=== PATIENT | male | born 1935 | race Caucasian/White ===

== ENCOUNTER 2019-03-12 15:56 | Emergency (ER) | payer MEDICARE, BC ==
[~2019-03-12] VITALS: Ht 182.9 cm; Wt 90.7 kg
[~2019-03-12 15:56] MED LIST: VALA500T34 PO; VALS160T2 PO
--- NOTE | 2019-03-12 16:22 | NUR ---
PATIENT BIB RA 83 FOR TRIP AND FALL. PATIENT IS AWAKE, ALERT, ORIENTED X4 IN NO DISTRESS. HE HAS A LACERATION ON HIS FOREHEAD AND SKIN TEARS ON HIS SCALP.
--- NOTE | 2019-03-12 16:31 | NUR ---
PATIENT LACERATION IRRIGATED AND SCALP SKIN TEARS WERE CLEANSED.
[2019-03-12] MEDS: LIDOCAINE 1%-EPI 1:100,000 20 ML VIAL TP ONE (16:56)
[2019-03-12] MEDS: TDAP DIPH,PERTUSS,TET VAC/PF 0.5 ML DISP.SYRIN IM ONE (17:00)
[2019-03-12] MEDS ORDERED: TDAP DIPH,PERTUSS,TET VAC/PF 0.5 ML DISP.SYRIN IM ONE (17:04)
--- NOTE | 2019-03-12 19:14 | NUR ---
DC, RX AND FOLLOW UP INSTRUCTIONS GIVEN AND EXPLAINED TO PATIENT AND GIRLFRIEND WHO STATE THEY UNDERSTAND ALL INSTRUCTIONS.
== END 2019-03-12 19:21 | disposition home or self-care (01) ==
LOC: ER 15:59
DX: S01.81XA Laceration without foreign body of other part of head, initial encounter (principal); S16.1XXA Strain of muscle, fascia and tendon at neck level, initial encounter; S83.91XA Sprain of unspecified site of right knee, initial encounter; S23.41XA Sprain of ribs, initial encounter; S50.311A Abrasion of right elbow, initial encounter; I10 Essential (primary) hypertension; Z88.2 Allergy status to sulfonamides; Z88.0 Allergy status to penicillin; Z88.1 Allergy status to other antibiotic agents; Z79.899 Other long term (current) drug therapy; W01.0XXA Fall on same level from slipping, tripping and stumbling without subsequent striking against object, initial encounter; Y93.89 Activity, other specified; Y92.89 Other specified places as the place of occurrence of the external cause; Y99.8 Other external cause status
CPT/HCPCS: 12013; 70450; 71045; 72125; 73080; 73562; 90471; 90715; 99284; J3490; A4663

== ENCOUNTER 2019-03-14 07:50 | Emergency (ER) | payer MEDICARE, BC ==
[~2019-03-14] VITALS: Ht 182.9 cm; Wt 89.4 kg
--- NOTE | 2019-03-14 07:55 | NUR ---
at bedside to examine patient.
== END 2019-03-14 08:03 | disposition home or self-care (01) ==
LOC: ER 07:50
DX: S01.81XD Laceration without foreign body of other part of head, subsequent encounter (principal); S05.11XD Contusion of eyeball and orbital tissues, right eye, subsequent encounter; S80.211D Abrasion, right knee, subsequent encounter; S50.311D Abrasion of right elbow, subsequent encounter; I16.0 Hypertensive urgency; Z88.0 Allergy status to penicillin; Z88.1 Allergy status to other antibiotic agents; Z88.2 Allergy status to sulfonamides; Z88.8 Allergy status to other drugs, medicaments and biological substances; Z79.899 Other long term (current) drug therapy; X58.XXXD Exposure to other specified factors, subsequent encounter
CPT/HCPCS: A4663

== ENCOUNTER 2019-03-20 07:28 | Emergency (ER) | payer MEDICARE, BC ==
[~2019-03-20] VITALS: Ht 182.9 cm; Wt 88.5 kg
--- NOTE | 2019-03-20 07:52 | NUR ---
PT WAS EVALUATED BY DR LANDAVERDE. SUTURES ON PT's RIGHT FOREHEAD WERE REMOVED BY DR LANDAVERDE. PT TOLERATED TO PROCEDURE WITHOUT COMPLICATIONS. PT WAS D/C;d TO HOME. D/C INSTRUCTIONS GIVEN TO THE PT.
[2019-03-20 07:54] VITALS: BP 142/88
== END 2019-03-20 07:58 | disposition home or self-care (01) ==
LOC: ER 07:28
DX: S01.81XD Laceration without foreign body of other part of head, subsequent encounter (principal); S80.212D Abrasion, left knee, subsequent encounter; S80.211D Abrasion, right knee, subsequent encounter; I10 Essential (primary) hypertension; Z88.0 Allergy status to penicillin; Z88.1 Allergy status to other antibiotic agents; Z88.2 Allergy status to sulfonamides; Z88.8 Allergy status to other drugs, medicaments and biological substances; Z79.899 Other long term (current) drug therapy; X58.XXXD Exposure to other specified factors, subsequent encounter
CPT/HCPCS: 99281; J3490; A4663

== ENCOUNTER 2019-07-16 15:37 | Emergency (ER) | payer MEDICARE, BC ==
[~2019-07-16] VITALS: Ht 182.9 cm; Wt 94.3 kg
--- NOTE | 2019-07-16 15:50 | NUR ---
BIB [facility] FOR S/P FALL AND C/O RIGHT HIP PAIN... PLACED ON A MONITOR.
--- NOTE | 2019-07-16 16:04 | NUR ---
JEFFERSON OLIVA [employer] HERE TO INTERVIEW PATIENT.
--- NOTE | 2019-07-16 16:07 | NUR ---
DARIEN NAME AND OFFICERNUMBER: NOTES [id number] AND BIRDIE [id number]
--- NOTE | 2019-07-16 16:36 | NUR ---
DARIEN INCIDENT NUMBER [id number]
[2019-07-16 16:48] LABS: BASOPHILS % (AUTO) 0.5 % (0.0-2.0); EOSINOPHILS # (AUTO) 0.1 K/uL (0.0-0.7); EOSINOPHILS % (AUTO) 2.3 % (0.0-7.0); HEMATOCRIT 42.2 % (36.7-47.1); HEMOGLOBIN 14.3 g/dL (12.5-16.3); LYMPHOCYTES % (AUTO) 20.6 % (20.5-51.5); MEAN CORPUSCULAR HEMOGLOBIN 35.3 uug (23.8-33.4); MEAN CORPUSCULAR HGB CONC 34 g/dL (32.5-36.3); MEAN CORPUSCULAR VOLUME 104.2 fL (73.0-96.2); MONOCYTES # (AUTO) 0.5 K/uL (2.0-10.0); MONOCYTES % (AUTO) 9.9 % (0.0-11.0); NEUTROPHILS # (AUTO) 3.2 K/uL (1.8-8.9); NEUTROPHILS % (AUTO) 66.7 % (38.5-71.5); PLATELET COUNT (AUTO) 99 K/uL (152-348); RED BLOOD CELL COUNT(AUTO) 4.05 MIL/uL (4.06-5.63); WHITE BLOOD COUNT (AUTO) 4.9 K/uL (3.6-10.2)
[2019-07-16 17:00] LABS: POTASSIUM 3.7 mmol/L (3.5-5.1)
[2019-07-16] MEDS ORDERED: MORPHINE SULFATE 4 MG/1 ML DISP.SYRIN ONE (17:00)
[2019-07-16] MEDS ORDERED: MORPHINE SULFATE 4 MG/1 ML DISP.SYRIN IV ONE (17:00)
[2019-07-16] MEDS ORDERED: IV NS 1000 ML 1,000 ML IV PRN (17:36)
--- NOTE | 2019-07-16 17:38 | NUR ---
PAIN MED GIVEN ORDERED, PT STATES PAIN HAS DIMINSHED SOME...
[2019-07-16] MEDS ORDERED: MORPHINE SULFATE 2 MG/1 ML DISP.SYRIN IV PRN (17:45)
[2019-07-16] MEDS ORDERED: HYDROCODONE/APAP 5-325MG TABLET PO PRN (17:45)
[2019-07-16] MEDS ORDERED: ACETAMINOPHEN 325 MG TABLET PO PRN (17:45)
[2019-07-16] MEDS ORDERED: MAGNESIUM HYDROXIDE 30 ML LIQUID UDC PO PRN (17:45)
[2019-07-16] MEDS ORDERED: ONDANSETRON 4 MG/2 ML VIAL IV PRN (17:45)
[2019-07-16] MEDS ORDERED: Z GUARD REMEDY PASTE 57 GM TUBE TOP PRN (17:45)
[2019-07-16] MEDS ORDERED: hydrALAZINE HCL 25 MG TABLET PO PRN (18:00)
--- NOTE | 2019-07-16 18:02 | NUR ---
Left message for Dr Ng, Ortho surgeon, awaiting call back.
--- NOTE | 2019-07-16 18:25 | NUR ---
DR. ALCOCER TALKED TO DR. OLIVAS AND REQUESTED THE PT TO BE TRNASFERED TO [facility], WILL BE THE ACCEPTING MD. CALLED [facility] AND TALKED NICOLAS RAMIREZ BOIL OFF WORKER, TO [place] FOR TRANSFER. FAXED THE FACE SHEET TO [phone] PER REQUEST
--- NOTE | 2019-07-16 18:27 | NUR ---
DR. ALCOCER NUMBER [phone], ORTHO
--- NOTE | 2019-07-16 19:22 | NUR ---
[facility] CALLED AND STATED DR NOLAND (ORTHO) WILL ACCEPT THIS PATIENT AND THEY WAILL CALL BACK WITHIN 30 MINUTES FOR BED NUMBER AND REPORT NUMBER. HAND OFF REPORT GIVEN TO ETTA LANE
--- NOTE | 2019-07-16 20:56 | NUR ---
Pt assigned to 506B in [facility]. Pt is refusing to be transferred to [place] due to distance. Pt states that his significant other does not drive long distances. Dr. Recinos made aware. Called Dr. Ng ([facility]) for update, waiting for call back.
--- NOTE | 2019-07-16 21:34 | NUR ---
Dr. Recinos on phone with Dr. Ng (ortho)
--- NOTE | 2019-07-16 22:15 | NUR ---
Dr. Ng requesting for patient to go to [facility]. [facility] called, pending update.
--- NOTE | 2019-07-16 22:38 | NUR ---
Spoke with Pamella Goetz from [facility] regarding transfer, states no available bed at this time. Dr. Ng made aware.
--- NOTE | 2019-07-16 23:08 | NUR ---
Received call back from Pamella Goetz ([facility]) and states that Dr. Frazier (hospitalist) will accept patient [phone].
--- NOTE | 2019-07-17 00:40 | NUR ---
Dr. Frazier on phone with Dr Recinos. Pending transfer information at this time. Per admitting ([facility]) no available beds yet.
--- NOTE | 2019-07-17 01:01 | NUR ---
Pt to be transferred to [facility] room [address] Freddie Humphreys trip # [id number]
--- NOTE | 2019-07-17 01:25 | NUR ---
Report given to Juana LANE from [facility].
[2019-07-17] MEDS ORDERED: ONDANSETRON 4 MG/2 ML VIAL ONE (02:16)
[2019-07-17] MEDS ORDERED: HYDROMORPHONE 1 MG/1 ML DISP.SYRIN ONE (02:16)
[2019-07-17] MEDS ORDERED: ONDANSETRON 4 MG/2 ML VIAL IV ONE (02:30)
[2019-07-17] MEDS ORDERED: HYDROMORPHONE 1 MG/1 ML DISP.SYRIN IV ONE (02:30)
--- NOTE | 2019-07-17 03:25 | NUR ---
Report given to Ambuln staff unit 228, pt transferred to in stable condition. Pt and family members aware of plan of care. No acute distress.
== END 2019-07-17 03:29 | disposition short-term general hospital (02) ==
LOC: ER 15:37
DX: S72.001A Fracture of unspecified part of neck of right femur, initial encounter for closed fracture (principal); D69.6 Thrombocytopenia, unspecified; I10 Essential (primary) hypertension; Z88.0 Allergy status to penicillin; Z88.1 Allergy status to other antibiotic agents; Z88.8 Allergy status to other drugs, medicaments and biological substances; Z79.899 Other long term (current) drug therapy; Y04.0XXA Assault by unarmed brawl or fight, initial encounter; Y93.89 Activity, other specified; Y92.89 Other specified places as the place of occurrence of the external cause; Y99.8 Other external cause status
CPT/HCPCS: 36415; 71045; 72110; 72170; 73502; 73551; 80048; 85025; 85730; 93005; 96374; 96375; 99285; J1170; J2270; J2405; A4663

== ENCOUNTER 2019-11-11 10:57 | Inpatient (IN) | payer MEDICARE, BC ==
[~2019-11-11] VITALS: Ht 182.9 cm; Wt 88.5 kg
--- NOTE | 2019-11-11 11:00 | NUR ---
pt bib ra 83 from home co cp. pt woke up with cp today, lasted an hour but subsided with nitro and asa given by paramedics. on arrival, pt deneis any co, sob, coughing or nausea. pt breathing normally, no sign of distress.
[2019-11-11] MEDS ORDERED: [UNRECOGNIZED DRUG - OTHER] (11:12)
[2019-11-11] MEDS ORDERED: METO25TA6 PO (11:12)
[2019-11-11] MEDS ORDERED: TAMS-3 PO (11:12)
[2019-11-11] MEDS ORDERED: CHOL500062 (11:12)
[2019-11-11] MEDS ORDERED: ASPI-605 PO (11:12)
[2019-11-11] MEDS ORDERED: AREDS2 (11:12)
[2019-11-11] MEDS ORDERED: B-COMPLEX (11:12)
[2019-11-11 11:25] LABS: BASOPHILS % (AUTO) 1.2 % (0.0-2.0); EOSINOPHILS # (AUTO) 0.2 K/uL (0.0-0.7); EOSINOPHILS % (AUTO) 4.9 % (0.0-7.0); HEMATOCRIT 40.7 % (36.7-47.1); HEMOGLOBIN 13.8 g/dL (12.5-16.3); LYMPHOCYTES # (AUTO) 1.7 K/uL (20.0-40.0); LYMPHOCYTES % (AUTO) 40.4 % (20.5-51.5); MEAN CORPUSCULAR HEMOGLOBIN 33.6 uug (23.8-33.4); MEAN CORPUSCULAR HGB CONC 34 g/dL (32.5-36.3); MEAN CORPUSCULAR VOLUME 99.2 fL (73.0-96.2); MONOCYTES # (AUTO) 0.5 K/uL (2.0-10.0); NEUTROPHILS # (AUTO) 1.8 K/uL (1.8-8.9); NEUTROPHILS % (AUTO) 42.5 % (38.5-71.5); PLATELET COUNT (AUTO) 112 K/uL (152-348); WHITE BLOOD COUNT (AUTO) 4.3 K/uL (3.6-10.2)
[2019-11-11 11:35] LABS: CREATININE 1.1 mg/dL (0.6-1.3); POTASSIUM 4.1 mmol/L (3.5-5.1)
[2019-11-11 11:41] LABS: BILIRUBIN,DIRECT 0.2 mg/dL (0.0-0.2); BILIRUBIN,TOTAL 0.7 mg/dL (0.2-1.0); TOTAL PROTEIN, SERUM 5.9 g/dL (6.4-8.2)
--- NOTE | 2019-11-11 12:30 | NUR ---
trnasfered pt to floor in stable condition. pt remained pain/distress free the whole er stay.
[2019-11-11] MEDS ORDERED: ONDANSETRON 4 MG/2 ML VIAL IV PRN (13:30)
[2019-11-11] MEDS ORDERED: Z GUARD REMEDY PASTE 57 GM TUBE TOP PRN (13:30)
[2019-11-11] MEDS ORDERED: ACETAMINOPHEN 325 MG TABLET PO PRN (13:30)
[2019-11-11] MEDS: METOPROLOL TARTRATE 25 MG TABLET PO SCH ×2 (13:45→20:17)
[2019-11-11 14:52] VITALS: BP 141/66
[2019-11-11 16:11] VITALS: BP 150/76
[2019-11-11] MEDS ORDERED: METOPROLOL TARTRATE 25 MG TABLET PO SCH (18:00)
--- NOTE | 2019-11-11 18:42 | NUR ---
patient calm and comfortable with no signs of distress; patient with with stable vital signs. Report given to oncoming nurse.
--- NOTE | 2019-11-11 19:00 | NUR ---
PATIENT ALERT ORIENTED, NO SOB NO CHEST PAIN. PATIENT ON TELE MONITOR SINUS RHYTHM AT THIS TIME. PATIENT RESTING NO COMPLAIN OF CHEST PAIN, CONT TO MONITOR.
[2019-11-11 20:00] VITALS: BP 147/90
[2019-11-11] MEDS ORDERED: ATORVASTATIN 40 MG TABLET PO SCH (21:00)
[2019-11-12] VITALS: BP 141/95
[2019-11-12 04:00] VITALS: BP 148/93
--- NOTE | 2019-11-12 06:25 | NUR ---
PATIENT ALERT ORIENTED, NO SOB NO CHEST PAIN AT THIS TIME. PATIENT TELE MONITOR SINUS RYTHYM SINUS SHANDA FROM 48- TO 67. PATIENT USES URINAL FOR BLADDER ELIMINATIONS, CONT TO MONITOR.
[2019-11-12 06:49] LABS: BASOPHILS % (AUTO) 1.1 % (0.0-2.0); EOSINOPHILS # (AUTO) 0.3 K/uL (0.0-0.7); EOSINOPHILS % (AUTO) 6.3 % (0.0-7.0); HEMATOCRIT 39.5 % (36.7-47.1); HEMOGLOBIN 13.4 g/dL (12.5-16.3); LYMPHOCYTES # (AUTO) 1.8 K/uL (20.0-40.0); LYMPHOCYTES % (AUTO) 41.4 % (20.5-51.5); MEAN CORPUSCULAR HEMOGLOBIN 33.5 uug (23.8-33.4); MEAN CORPUSCULAR HGB CONC 34 g/dL (32.5-36.3); MONOCYTES # (AUTO) 0.5 K/uL (2.0-10.0); MONOCYTES % (AUTO) 10.4 % (0.0-11.0); NEUTROPHILS # (AUTO) 1.8 K/uL (1.8-8.9); NEUTROPHILS % (AUTO) 40.8 % (38.5-71.5); PLATELET COUNT (AUTO) 113 K/uL (152-348); RED BLOOD CELL COUNT(AUTO) 3.99 MIL/uL (4.06-5.63); WHITE BLOOD COUNT (AUTO) 4.4 K/uL (3.6-10.2)
[2019-11-12 06:50] LABS: MAGNESIUM 1.9 mg/dL (1.8-2.4); PHOSPHOROUS 3.6 mg/dL (2.5-4.9); POTASSIUM 3.7 mmol/L (3.5-5.1)
--- NOTE | 2019-11-12 07:30 | NUR ---
Received pt in bed AOx3, on RA with no complaints of distress or SOB noted at this time. No complaints of chest pain, 3/10 pain on left shoulder and jaw. Per pt the reason of pain is fall. IV on left hand 20g, flushed and patent. Pt able to ambulate to bathroom. Bed locked in lowest position with siderails 2x up. Call light and belongings within reach. will monitor
[2019-11-12 08:06] VITALS: BP 154/94
[2019-11-12] MEDS ORDERED: TAMSULOSIN HCL 0.4 MG CAP.SR.24H PO SCH (09:00)
[2019-11-12] MEDS ORDERED: ASPIRIN 81 MG TAB.CHEW PO SCH (09:00)
[2019-11-12] MEDS: METOPROLOL TARTRATE 25 MG TABLET PO SCH (09:00)
[2019-11-12] MEDS ORDERED: VALSARTAN 160 MG TABLET PO SCH (09:00)
[2019-11-12] MEDS ORDERED: ASPIRIN EC 81 MG TABLET.DR PO SCH (09:00)
[2019-11-12] MEDS ORDERED: VALACYCLOVIR HCL 500 MG TABLET PO SCH (09:00)
--- NOTE | 2019-11-12 09:13 | NUR ---
Hold Metoprolol for now, HR 53-61. Will inform .
[2019-11-12 10:45] LABS: THYROID STIMULATING HORMONE 1.87 mIU/mL (0.358-3.740)
[2019-11-12 11:50] VITALS: BP 142/80
--- NOTE | 2019-11-12 14:38 | NUR ---
Pt left unit via wheelchair accompanied by Colton RODRIGUEZ. DC instructions and forms given and signed. Pt's belongings list checked and signed, all accounted for, all medication bottles given to patient. IV and ID band removed. No complaints of pain, no distress or SOB upon discharge.
[2019-11-13] MEDS ORDERED: VALSARTAN 80 MG TABLET PO SCH (09:00)
== END 2019-11-12 15:00 | disposition home or self-care (01) | DRG 558 ==
LOC: ER 10:57 → TELE3 12:47
PROVIDERS: ADMIT Nurse Practitioner Acute Care; ATTEND Nurse Practitioner Acute Care
DX: M75.42 Impingement syndrome of left shoulder (principal); E78.5 Hyperlipidemia, unspecified; F03.90 Unspecified dementia, unspecified severity, without behavioral disturbance, psychotic disturbance, mood disturbance, and anxiety; Z79.82 Long term (current) use of aspirin; N40.0 Benign prostatic hyperplasia without lower urinary tract symptoms; D75.89 Other specified diseases of blood and blood-forming organs; M75.52 Bursitis of left shoulder; B02.9 Zoster without complications; Z91.81 History of falling; Z96.641 Presence of right artificial hip joint; I25.10 Atherosclerotic heart disease of native coronary artery without angina pectoris; I49.3 Ventricular premature depolarization; I10 Essential (primary) hypertension
CPT/HCPCS: 36415; 70030-TC; 71045; 83735; 84100; 84443; 85025; 85730; 93005; A4663; G0378; U0003-CS

== ENCOUNTER 2020-09-30 20:33 | Inpatient (IN) | payer MEDICARE, BC ==
[~2020-09-30] VITALS: Ht 182.9 cm; Wt 89.8 kg
[~2020-09-30 20:33] MED LIST changes: +AREDS2; +ASPI-605 PO; +B-COMPLEX; +CHOL500062; +METO25TA6 PO; +TAMS-3 PO; +[UNRECOGNIZED DRUG - OTHER]
--- NOTE | 2020-09-30 20:40 | NUR ---
Patient BIB RA100 from home for c/o fever and diarrhea. Patient A/Ox2, to self, and place, but unknown to time. Speech is clear, speaks in complete sentences. No acute neuro deficits noted. Respiratory even and unlabored, no cough no sob. Patient denies any nausea or vomiting. Patient reports having diarrhea since earlier today, and notes that the consistency is clear, denies any hematochezia. Patient in bed at lowest position, sr upx2, call light within reach. Fall/safety precautions implemented per protocol along with contact isolation due to acute hx of diarrhea.
[2020-09-30] MEDS ORDERED: IV NORMAL SALINE 1000 ML BAG IV ONE (21:00)
[2020-09-30 21:13] LABS: BASOPHILS % (AUTO) 0.9 % (0.0-2.0); EOSINOPHILS # (AUTO) 0.2 K/uL (0.0-0.7); EOSINOPHILS % (AUTO) 5.6 % (0.0-7.0); HEMATOCRIT 37.9 % (36.7-47.1); HEMOGLOBIN 12.7 g/dL (12.5-16.3); LYMPHOCYTES # (AUTO) 1.9 K/uL (20.0-40.0); LYMPHOCYTES % (AUTO) 43.3 % (20.5-51.5); MEAN CORPUSCULAR HEMOGLOBIN 34.2 uug (23.8-33.4); MEAN CORPUSCULAR HGB CONC 34 g/dL (32.5-36.3); MEAN CORPUSCULAR VOLUME 101.9 fL (73.0-96.2); MONOCYTES # (AUTO) 0.5 K/uL (2.0-10.0); MONOCYTES % (AUTO) 12.3 % (0.0-11.0); NEUTROPHILS # (AUTO) 1.6 K/uL (1.8-8.9); NEUTROPHILS % (AUTO) 37.9 % (38.5-71.5); PLATELET COUNT (AUTO) 113 K/uL (152-348); RED BLOOD CELL COUNT(AUTO) 3.71 MIL/uL (4.06-5.63); WHITE BLOOD COUNT (AUTO) 4.3 K/uL (3.6-10.2)
[2020-09-30 21:18] LABS: POTASSIUM 3.3 mmol/L (3.5-5.1)
[2020-09-30 21:30] LABS: BILIRUBIN,DIRECT 0.2 mg/dL (0.0-0.2); BILIRUBIN,TOTAL 0.6 mg/dL (0.2-1.0); TOTAL PROTEIN, SERUM 5.8 g/dL (6.4-8.2)
--- NOTE | 2020-09-30 22:07 | NUR ---
Patient in bed at lowest position, sr upx2, call light within reach. NAD, VSS.
[2020-09-30 22:19] LABS: *BILIRUBIN,URIN NEGATIVE (NEGATIVE); *BLOOD, URINE NEGATIVE (NEGATIVE); *CLARITY,URINE CLEAR (CLEAR); *KETONES,URINE NEGATIVE (NEGATIVE); *UROBILINOGEN,URINE 0.2 E.U./dl (NORMAL); LEUKOCYTE ESTERASE ,URINE NEGATIVE (NEGATIVE); NITRITE, URINE NEGATIVE (NEGATIVE); PH,URINE 5.5 (5.0-8.0); UGLUCOSE NEGATIVE (NEGATIVE)
[2020-09-30 22:22] LABS: *COLOR,URINE STRAW (YELLOW)
--- NOTE | 2020-09-30 22:37 | NUR ---
Patient will be going into room 310, TELE inpatient admission per Dr. Littlejohn.
[2020-09-30] MEDS ORDERED: DONE10TA44 PO (22:39)
[2020-09-30] MEDS ORDERED: IVER3TAB2 PO (22:39)
--- NOTE | 2020-09-30 22:40 | NUR ---
EPIC panel call placed for Dr. Soliz, awaiting call back.
[2020-09-30] MEDS ORDERED: POTASSIUM BICARBONATE/CIT AC 25 MEQ TABLET.EFF PO ONE (22:45)
--- NOTE | 2020-09-30 22:50 | NUR ---
Dr. Soliz returned call.
[2020-09-30] MEDS ORDERED: POTASSIUM BICARBONATE/CIT AC 25 MEQ TABLET.EFF ONE (22:54)
[2020-09-30] MEDS ORDERED: Z GUARD REMEDY PASTE 57 GM TUBE TOP PRN (23:00)
[2020-09-30] MEDS ORDERED: MAGNESIUM HYDROXIDE 30 ML LIQUID UDC PO PRN (23:00)
[2020-09-30] MEDS ORDERED: ONDANSETRON 4 MG/2 ML VIAL IV PRN (23:00)
[2020-09-30] MEDS ORDERED: ACETAMINOPHEN 325 MG TABLET PO PRN (23:00)
--- NOTE | 2020-09-30 23:00 | NUR ---
Report given to DOMINGO Ferrera for tele admission under Dr. Soliz.
--- NOTE | 2020-10-01 | NUR ---
Admitted a 85 years old male with Dx of Fever with unknown origin. Patient AAOx2-3 with forgetfulness. Afebrile at this time with latest temp. of 98.1 orally. In no acute distress. Denies any pain or SOB. Sinus arrhythmia with occasional PVC on tele at 60/min. IV site on left wrist intact and patent. IVF on going. Contact precaution observed. No LBM noted at his time. Routine admission care done. Plan of care initiated. Safety measure initiated and call hurt within reached. Continue to monitor.
[2020-10-01] MEDS: IV NS 1000 ML 1,000 ML IV PRN ×3 (00:07→21:37)
[2020-10-01 00:10] VITALS: BP 148/110
[2020-10-01 04:00] VITALS: BP 148/95
[2020-10-01 05:45] LABS: BASOPHILS % (AUTO) 1.1 % (0.0-2.0); EOSINOPHILS # (AUTO) 0.3 K/uL (0.0-0.7); EOSINOPHILS % (AUTO) 6.9 % (0.0-7.0); HEMATOCRIT 36.3 % (36.7-47.1); HEMOGLOBIN 12.1 g/dL (12.5-16.3); LYMPHOCYTES # (AUTO) 1.7 K/uL (20.0-40.0); LYMPHOCYTES % (AUTO) 45.4 % (20.5-51.5); MEAN CORPUSCULAR HEMOGLOBIN 34.2 uug (23.8-33.4); MEAN CORPUSCULAR HGB CONC 34 g/dL (32.5-36.3); MEAN CORPUSCULAR VOLUME 102.2 fL (73.0-96.2); MONOCYTES # (AUTO) 0.5 K/uL (2.0-10.0); MONOCYTES % (AUTO) 12.8 % (0.0-11.0); NEUTROPHILS # (AUTO) 1.2 K/uL (1.8-8.9); NEUTROPHILS % (AUTO) 33.8 % (38.5-71.5); PLATELET COUNT (AUTO) 89 K/uL (152-348); RED BLOOD CELL COUNT(AUTO) 3.55 MIL/uL (4.06-5.63); WHITE BLOOD COUNT (AUTO) 3.7 K/uL (3.6-10.2)
[2020-10-01 06:06] LABS: BILIRUBIN,TOTAL 0.5 mg/dL (0.2-1.0); MAGNESIUM 1.8 mg/dL (1.8-2.4); PHOSPHOROUS 3.3 mg/dL (2.5-4.9); POTASSIUM 3.6 mmol/L (3.5-5.1); TOTAL PROTEIN, SERUM 5.2 g/dL (6.4-8.2)
--- NOTE | 2020-10-01 06:18 | NUR ---
Patient slept well after admission. Denies any pain or SOB. IV site on left wrist intact and patent. IVF infusing. Sinus arrhythmia with occasional PVC's on tele at 65/min. No diarrhea noted. Contact isolation observed. Needs assessed and attended to. Safety measure maintained and call hurt within reached.
[2020-10-01 06:31] LABS: EOSINOPHILS % (MANUAL) 3 % (0-8); LYMPHOCYTES % (MANUAL) 48 % (20-40); MONOCYTES % (MANUAL) 6 % (2-10); NEUTROPHILS % (MANUAL) 39 % (42-75)
--- NOTE | 2020-10-01 07:30 | NUR ---
START OF SHIFT received change of shift report. pt a/o x3, pt has wound on the right upper arm, pt on tele monitor, sinus arrhythmia, on room air, no signs of distress, no reports of pain at this time. pt voids using urinal, yellow urine. pt reports liquid stool prior to admission. IV access on the left wrist 20g infusing NS at 75cc. call light within reach, on contact precaution, will continue to monitor.
[2020-10-01 07:45] VITALS: BP 113/72
[2020-10-01] MEDS: ASPIRIN EC 81 MG TABLET.DR PO SCH (08:11)
[2020-10-01] MEDS: DONEPEZIL 10 MG TABLET PO SCH (08:11)
--- NOTE | 2020-10-01 11:53 | NUR ---
WOUND CARE CONSULT: PT PRESENTS WITH LEFT UPPER ARM SKIN ISSUE WITH SCANT BLEEDING, PRESENT ON ADMISSION. PT STATES HAS BEEN TO SEVERAL DERMATOLOGISTS FOR THE ISSUE. RECOMMENDATIONS MADE FOR SKIN PROTECTION. DISCUSSED WITH NURSING STAFF. PT IS AMBULATORY AND CONTINENT AT THIS TIME. IN AGREEMENT WITH PLAN OF CARE. Addendum: 10/01/20 at 1156 by DEAN BUTTS RN CORRECTION: RT UPPER ARM.
[2020-10-01 15:35] VITALS: BP 131/96
--- NOTE | 2020-10-01 18:59 | NUR ---
END OF SHIFT pt in bed resting, a/ox3, pt has skin redness on the right upper arm, per wound nurse, xeroform was applied and covered with abd pad and kerlix. dressing clean dry and intact. pt on tele monitor 2nd degree type 1 heart block, made aware. pt ambulatory with assist, urinal at bedside, voiding yellow urine, IV on left wrist 20g infusing NS at 20cc. will endorse to oncoming nurse.
[2020-10-01 20:18] VITALS: BP 160/94
[2020-10-01 21:36] VITALS: BP 132/88
[2020-10-02 00:42] VITALS: BP 126/99
[2020-10-02 05:24] VITALS: BP 131/70
--- NOTE | 2020-10-02 07:30 | NUR ---
START OF SHIFT: received change of shift report, pt came in with c/o fever and diarrhea, pt has not had a fever or BM since being admitted 09/30/2020. pt a/o x3, pt has upper arm skin condition that is red and pink, covered with xeroform and kerlix. pt on tele monitor, 2nd degree type 1, on room air, no signs of distress, no reports of pain, pt uses urinal at bedside. IV access on right wrist 20g infusing NS at 75cc. will continue with plan of care.
[2020-10-02] MEDS: ASPIRIN EC 81 MG TABLET.DR PO SCH (08:39)
[2020-10-02] MEDS: DONEPEZIL 10 MG TABLET PO SCH (08:39)
--- NOTE | 2020-10-02 09:00 | NUR ---
Side Laster Tack came for evaluation, see MD note. Notified cardio to please call family.
[2020-10-02] MEDS: IV NS 1000 ML 1,000 ML IV PRN (10:01)
[2020-10-02 11:16] VITALS: BP 163/97
[2020-10-02] MEDS ORDERED: hydrALAZINE HCL 25 MG TABLET PO ONE (11:30)
[2020-10-02 15:26] VITALS: BP 147/90
--- NOTE | 2020-10-02 15:50 | NUR ---
DISCHARGE NOTE: pt discharged home with girlfriend, Meredith Talamantes, pt is a/o x3, on room air, no signs of distress, no fevers, no diarrhea, no reports of pain at this time. pt is ambulatory, voids via urinal at bedside. pt has skin condition on the right upper arm, dressing removed per pt request. photos taken and in chart, ID band and IV access removed prior to discharge. pt taken to car via wheelchair.
== END 2020-10-02 16:10 | disposition home or self-care (01) | DRG 310 ==
LOC: ER 20:34 → TELE3 23:39
PROVIDERS: ADMIT Internal Medicine; ATTEND Internal Medicine
DX: I44.1 Atrioventricular block, second degree (principal); R53.1 Weakness; I10 Essential (primary) hypertension; F03.90 Unspecified dementia, unspecified severity, without behavioral disturbance, psychotic disturbance, mood disturbance, and anxiety; I48.0 Paroxysmal atrial fibrillation; Z20.822 Contact with and (suspected) exposure to COVID-19; Z79.82 Long term (current) use of aspirin; I25.10 Atherosclerotic heart disease of native coronary artery without angina pectoris; I49.3 Ventricular premature depolarization; R19.7 Diarrhea, unspecified; Z88.0 Allergy status to penicillin; Z88.2 Allergy status to sulfonamides
CPT/HCPCS: 36415; 70030-TC; 71045; 83605; 83735; 84100; 84443; 85025; 85730; 87040; 87086; 87400; 93005; A4663; G0378; J7030

== ENCOUNTER 2020-11-16 21:42 | Emergency (ER) | payer MEDICARE, BC ==
[~2020-11-16] VITALS: Ht 185.4 cm; Wt 86.2 kg
[~2020-11-16 21:42] MED LIST changes: -AREDS2; +DONE10TA44 PO; +IVER3TAB2 PO; -METO25TA6 PO; -TAMS-3 PO; -VALA500T34 PO; -VALS160T2 PO; -[UNRECOGNIZED DRUG - OTHER]
--- NOTE | 2020-11-16 22:13 | NUR ---
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 Pt. had a right femur fracture 2019 and surgery on right hip. Pt. was at [facility] 11/14/20 for abdominal pain. A CT scan was done and he was dx with diverticulitis and given antibiotics. Pt denies sob, dizziness, chest pain, swelling of the leg, or other symptoms.
--- NOTE | 2020-11-16 22:43 | NUR ---
Called for ultrasound
--- NOTE | 2020-11-16 22:48 | NUR ---
lab at bedside
[2020-11-16 22:58] LABS: BASOPHILS % (AUTO) 0.8 % (0.0-2.0); EOSINOPHILS # (AUTO) 0.2 K/uL (0.0-0.7); EOSINOPHILS % (AUTO) 3.8 % (0.0-7.0); HEMATOCRIT 37.7 % (36.7-47.1); HEMOGLOBIN 12.6 g/dL (12.5-16.3); LYMPHOCYTES # (AUTO) 1.4 K/uL (20.0-40.0); LYMPHOCYTES % (AUTO) 35.8 % (20.5-51.5); MEAN CORPUSCULAR HEMOGLOBIN 33.5 uug (23.8-33.4); MEAN CORPUSCULAR HGB CONC 33 g/dL (32.5-36.3); MEAN CORPUSCULAR VOLUME 100.7 fL (73.0-96.2); MONOCYTES # (AUTO) 0.5 K/uL (2.0-10.0); MONOCYTES % (AUTO) 11.4 % (0.0-11.0); NEUTROPHILS # (AUTO) 1.9 K/uL (1.8-8.9); NEUTROPHILS % (AUTO) 48.2 % (38.5-71.5); PLATELET COUNT (AUTO) 164 K/uL (152-348); RED BLOOD CELL COUNT(AUTO) 3.75 MIL/uL (4.06-5.63)
[2020-11-16 23:04] LABS: POTASSIUM 3.3 mmol/L (3.5-5.1)
[2020-11-16 23:09] LABS: BILIRUBIN,TOTAL 0.3 mg/dL (0.2-1.0); TOTAL PROTEIN, SERUM 5.3 g/dL (6.4-8.2)
--- NOTE | 2020-11-16 23:42 | NUR ---
Ultrasound at bedside
[2020-11-17 01:00] LABS: *BILIRUBIN,URIN NEGATIVE (NEGATIVE); *BLOOD, URINE NEGATIVE (NEGATIVE); *COLOR,URINE AMBER (YELLOW); *KETONES,URINE 1+ (NEGATIVE); *UROBILINOGEN,URINE 0.2 E.U./dl (NORMAL); LEUKOCYTE ESTERASE ,URINE NEGATIVE (NEGATIVE); NITRITE, URINE NEGATIVE (NEGATIVE); PH,URINE 5.5 (5.0-8.0); UGLUCOSE NEGATIVE (NEGATIVE)
[2020-11-17] MEDS ORDERED: POTASSIUM CHLORIDE 20 MEQ TAB.PRT.SR ONE (01:00)
[2020-11-17] MEDS ORDERED: POTASSIUM CHLORIDE 20 MEQ TAB.PRT.SR PO ONE (01:00)
[2020-11-17 01:02] LABS: *CLARITY,URINE HAZY (CLEAR)
[2020-11-17 01:05] LABS: BACTERIA,URINE NONE SEEN /HPF (NONE SEEN); CALCIUM OXALATE CRYSTALS,UR MODERATE /HPF (NONE SEEN); RBC,URINE NONE SEEN /HPF (0-3); SQUAMOUS EPITHELIAL CELL,UR NONE SEEN /HPF (NONE SEEN); WBC,URINE 0-3 /HPF (0-3)
[2020-11-17 02:58] VITALS: BP 114/77
== END 2020-11-17 01:06 | disposition home or self-care (01) ==
LOC: ER 21:43
DX: M25.551 Pain in right hip (principal); E87.6 Hypokalemia; R10.11 Right upper quadrant pain; I10 Essential (primary) hypertension; N40.0 Benign prostatic hyperplasia without lower urinary tract symptoms; Z88.1 Allergy status to other antibiotic agents; Z88.0 Allergy status to penicillin; Z88.2 Allergy status to sulfonamides; Z79.82 Long term (current) use of aspirin; Z79.899 Other long term (current) drug therapy; I44.0 Atrioventricular block, first degree; R94.31 Abnormal electrocardiogram [ECG] [EKG]
CPT/HCPCS: 36415; 73502; 73551; 83690; 85025; 93005; A4663

== ENCOUNTER 2021-12-16 06:03 | Inpatient (IN) | payer MEDICARE, BC ==
[~2021-12-16] VITALS: Ht 185.4 cm; Wt 84.5 kg
[2021-12-16] MEDS ORDERED: IV NORMAL SALINE 1000 ML BAG IV ONE (06:15)
[2021-12-16] MEDS ORDERED: LIDOCAINE 2% (GLYDO= UROJET) 10 ML JELLY MM ONE ×2 (06:42→06:45)
[2021-12-16 06:48] LABS: HEMATOCRIT 43.1 % (36.7-47.1); MEAN CORPUSCULAR HEMOGLOBIN 34.7 uug (23.8-33.4); MEAN CORPUSCULAR VOLUME 101.4 fL (73.0-96.2); PLATELET COUNT (AUTO) 77 K/uL (152-348)
--- NOTE | 2021-12-16 07:05 | NUR ---
Patient taken to CT
[2021-12-16 07:12] LABS: ALANINE AMINOTRANSFERASE 24 U/L (16-63); ALKALINE PHOSPHATASE 55 U/L (50-136); ASPARTATE AMINOTRANSFERASE 23 U/L (15-37); BILIRUBIN,DIRECT 0.3 mg/dL (0.0-0.2); BILIRUBIN,TOTAL 1.8 mg/dL (0.2-1.0); CARBON DIOXIDE 29 mmol/L (21-32); CHLORIDE 107 mmol/L (98-107); CREATININE 1.3 mg/dL (0.6-1.3); GLUCOSE 116 mg/dL (74-106); POTASSIUM 4.3 mmol/L (3.5-5.1); TOTAL PROTEIN, SERUM 5.8 g/dL (6.4-8.2); UREA NITROGEN, BLOOD 17 mg/dL (7-18)
[2021-12-16 07:37] LABS: MAGNESIUM 1.8 mg/dL (1.8-2.4)
[2021-12-16 08:02] LABS: *BILIRUBIN,URIN NEGATIVE (NEGATIVE); *CLARITY,URINE CLEAR (CLEAR); *COLOR,URINE YELLOW (YELLOW); *KETONES,URINE NEGATIVE (NEGATIVE); *UROBILINOGEN,URINE 0.2 E.U./dl (NORMAL); LEUKOCYTE ESTERASE ,URINE NEGATIVE (NEGATIVE); NITRITE, URINE NEGATIVE (NEGATIVE); UGLUCOSE NEGATIVE (NEGATIVE)
[2021-12-16 08:03] LABS: *BLOOD, URINE TRACE (NEGATIVE)
[2021-12-16 08:16] LABS: BACTERIA,URINE NONE SEEN /HPF (NONE SEEN); RBC,URINE 0-3 /HPF (0-3); SQUAMOUS EPITHELIAL CELL,UR NONE SEEN /HPF (NONE SEEN); WBC,URINE NONE SEEN /HPF (0-3)
--- NOTE | 2021-12-16 08:28 | NUR ---
Nursing workers compensation claims supervisor Beth, ER registration staff Tiffany and 3rd flr staff Stephanie notified re: "Plan to admit to telemetry" per Dr Theodore
--- NOTE | 2021-12-16 09:34 | NUR ---
Cisco everett in [facility] - 12/16/21 at 1402 by MALACHI Nursing SBAR given to (inpatient telemetry/transition) nurse Tran Lancaster by DOMINGO Ocampo.
--- NOTE | 2021-12-16 09:34 | NUR ---
Inpatient transition nurse Tran Lancaster accepted nursing SBAR from DOMINGO Ocampo.
[2021-12-16] MEDS ORDERED: DEXAMETHASONE SOD PHOSPHATE 4 MG INJ IV ONE (09:45)
[2021-12-16] MEDS ORDERED: CEFTRIAXONE 1 G in IV DEXTROSE 5% 50 ML IV ONE (09:45)
[2021-12-16] MEDS ORDERED: AZITHROMYCIN 250 MG TABLET PO ONE (09:45)
[2021-12-16] MEDS ORDERED: DEXAMETHASONE SOD PHOSPHATE 10 MG INJ ONE (09:49)
[2021-12-16] MEDS ORDERED: CEFTRIAXONE /D5W 50ML IVPB **ER PYXIS IV ONE (09:49)
[2021-12-16] MEDS ORDERED: AZITHROMYCIN 250 MG TABLET ONE (09:49)
[2021-12-16] MEDS ORDERED: LORAZEPAM 2 MG/1 ML VIAL IV PRN (11:15)
[2021-12-16] MEDS ORDERED: LORAZEPAM 2 MG/1 ML VIAL ONE (11:19)
--- NOTE | 2021-12-16 12:50 | NUR ---
Patient will be assigned to nurse Ailyn in room 322.
[2021-12-16 13:30] VITALS: BP 124/97
--- NOTE | 2021-12-16 13:40 | NUR ---
Gave report to Cornelius LANE.
[2021-12-16] MEDS ORDERED: IV 1/2NS 1000 ML 1,000 ML IV PRN ×2 (13:45→13:53)
[2021-12-16] MEDS ORDERED: REMEDY ESSENTIAL ZINC PASTE 113 GM TP PRN (13:45)
[2021-12-16] MEDS ORDERED: ONDANSETRON 4 MG/2 ML VIAL IV PRN (13:45)
[2021-12-16] MEDS: ENOXAPARIN SODIUM 40 MG/0.4 ML DISP.SYRIN SQ SCH (13:45)
[2021-12-16] MEDS ORDERED: MAGNESIUM HYDROXIDE 30 ML LIQUID UDC PO PRN (13:45)
--- NOTE | 2021-12-16 14:11 | NUR ---
Patient transported to telemetry unit acccompanied by RN.
[2021-12-16 14:19] VITALS: BP 147/81
[2021-12-16 14:29] LABS: FERRITIN 108 ng/mL (26-388); LACTATE DEHYDROGENASE 140 U/L (85-227)
--- NOTE | 2021-12-16 14:51 | NUR ---
Patient admitted to unit. Patient immediately combative when attempting to take pictures of wounds. Patient refusing medication in attempt to prevent further escalation. Will endorse information to PM nurse.
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
[2021-12-16] MEDS ORDERED: LISI-782 PO (15:38)
[2021-12-16] MEDS ORDERED: HYDR-4077 PO (15:41)
--- NOTE | 2021-12-16 15:45 | NUR ---
Patient very confused and aggressive when attempting to help patient. Patient's behavior escalating when attempting to place leads for heart monitor. Patient placed on telemetry unit, but will follow up with Ga WEEKS. Heart monitor not placed. Will endorse information to PM nurse.
[2021-12-16] MEDS: LISINOPRIL 5 MG TABLET PO SCH (16:44)
--- NOTE | 2021-12-16 17:10 | NUR ---
Attempted to call patient's power of personal injury attorney regarding code status. Unable to leave voicemail due to filled mailbox.
--- NOTE | 2021-12-16 17:32 | NUR ---
Heart monitor placed. Patient aggressive when attempting to do skin care to patient's buttocks. Unable without patient aggression escalating.
[2021-12-16] MEDS: QUETIAPINE FUMARATE 25 MG TABLET PO PRN (18:13)
--- NOTE | 2021-12-16 18:18 | NUR ---
Patient pulled out IV site. Restraints ordered and placed. When attempting to start new line, patient attempting to spit. Did not further attempt to start line. Will endorse information to PM nurse. PRN medication given to help ease aggression.
--- NOTE | 2021-12-16 18:49 | NUR ---
Episodes of A-Fib. Ga WEEKS notified. EKG ordered STAT.
--- NOTE | 2021-12-16 19:23 | NUR ---
Able to start IV line on patient's right hand 20G.
[2021-12-16] MEDS: MORPHINE SULFATE 2 MG/1 ML DISP.SYRIN IV PRN (19:40)
[2021-12-16 20:00] VITALS: BP 129/94
--- NOTE | 2021-12-16 20:00 | NUR ---
PATIENT ON TELE A-FIB, HR 128. MIK GEIGER NP AWARE. RECEIVED ORDER FOR PATIENT TO BE TRANSFERRED TO [facility]. RN MANUFACTURING PLANT CONTROLLER NOTIFIED.
--- NOTE | 2021-12-16 20:20 | NUR ---
IV SITE NOTED TO RIGHT HAND, DISLODGED AND LEAKING. NEW IV STARTED TO LEFT HAND #22 GAUGE.
--- NOTE | 2021-12-16 20:20 | NUR ---
Received patient in bed asleep but arousable, tele monitor sinus. a fib, rhythm sinus tachy 114, Ga Maldonado ordered to put patient as a [facility] patient, patient noted with agitation, resistive to care, uncooperative with risk for injury multiple episode of pulling iv lines, tries to climb out of bed, on wrist restraints, check for placement and circulations, patient appears relax and no pain at this time, will cont to monitor.
[2021-12-16] MEDS ORDERED: AMIODARONE HCL IV 150 MG in IV DEXTROSE 5% 100 ML IV ONE (21:00)
--- NOTE | 2021-12-16 21:20 | NUR ---
Patient asleep but arousable, Amiodarone IV bolus was done, on Amiodarone 33.33 cc/hr for another 6 hours, tolerate well, tele monitor sinus rhythm sinus tachy rates between 99-111, cont to monitor.
[2021-12-16] MEDS: AMIODARONE HCL IV 450 MG in IV DEXTROSE 5% 250 ML IV PRN (21:36)
[2021-12-17] VITALS: BP 116/64
[2021-12-17] MEDS: MORPHINE SULFATE 2 MG/1 ML DISP.SYRIN IV PRN ×2 (00:49→12:48)
--- NOTE | 2021-12-17 03:19 | NUR ---
Patient responsible democrat faxed [employer], patient is now DNR per paper work.
--- NOTE | 2021-12-17 03:40 | NUR ---
Amiodarone drip titrate to 16.66 cc/hr heart rate 69, sinus with pac. cont to monitor.
[2021-12-17 04:00] VITALS: BP 136/99
[2021-12-17] MEDS: PANTOPRAZOLE SODIUM 40 MG TABLET.DR PO SCH (06:01)
--- NOTE | 2021-12-17 06:46 | NUR ---
Patient awake verbally responsive able to make some needs know, still on amiodarone iv 0.5mg/ml, tele sinus rhyth, sinus tachy still, no s/s of pain at this time, chen cath patent with tea, steve color urine in moderate amount, cont to monitor. Patient soft wrist restraints to prevent on pulling iv lines, and risk for hurting himself, cont on droplet precaution, cont to monitor.
[2021-12-17 07:15] LABS: HEMATOCRIT 40.7 % (36.7-47.1); MEAN CORPUSCULAR HEMOGLOBIN 34.4 uug (23.8-33.4); MEAN CORPUSCULAR VOLUME 100.9 fL (73.0-96.2); PLATELET COUNT (AUTO) 74 K/uL (152-348)
[2021-12-17 07:25] LABS: CREATININE 1.3 mg/dL (0.6-1.3); MAGNESIUM 1.9 mg/dL (1.8-2.4); POTASSIUM 4.1 mmol/L (3.5-5.1)
[2021-12-17 07:54] LABS: THYROID STIMULATING HORMONE 1.401 mIU/mL (0.358-3.740)
--- NOTE | 2021-12-17 08:00 | NUR ---
awake alert but oriented to self only, on room air-sat at 94%, denies of any shortness of breath, no pain, soft restraints bilateral on, good circulation noted on both hands, tele SR 70's, Amiodarone drip at 0.5mg/hr-at 16.6ml/hdr via pump, chen cath draining yellow urine, sfety measures maintained
[2021-12-17 08:38] VITALS: BP 133/96
[2021-12-17] MEDS: AMIODARONE HCL IV 450 MG in IV DEXTROSE 5% 250 ML IV PRN (08:38)
[2021-12-17] MEDS: LISINOPRIL 5 MG TABLET PO SCH (08:39)
[2021-12-17] MEDS: ENOXAPARIN SODIUM 40 MG/0.4 ML DISP.SYRIN SQ SCH (09:00)
--- NOTE | 2021-12-17 09:15 | NUR ---
seen by Dr Jauregui with order
--- NOTE | 2021-12-17 09:30 | NUR ---
marahnox held per Reid Maldonado TOXICOLOGIST -platelet today 74, skrn yto xray dept for CT chest without contrast
[2021-12-17 12:00] VITALS: BP 146/102
[2021-12-17 15:26] VITALS: BP 128/105
[2021-12-17] MEDS: AMIODARONE HCL 200 MG TABLET PO SCH ×2 (16:01→21:00)
[2021-12-17] MEDS ORDERED: APIXABAN 5 MG TABLET PO SCH (16:30)
--- NOTE | 2021-12-17 17:18 | NUR ---
amiodarone drip discontinued, remains on SR 85, downgraded to tele
--- NOTE | 2021-12-17 18:04 | NUR ---
had periods of restlessness and agitated during shift, medicated with Morphine x 1 as ordered for pain this shift- with relief, repositioned q 2h with heels off loaded with pillows, still on wrist restraints, able to pull out midline earlier, restarted iv with G20 on right forearm, all needs attended and met
[2021-12-17] MEDS: QUETIAPINE FUMARATE 25 MG TABLET PO SCH (18:28)
--- NOTE | 2021-12-17 19:44 | NUR ---
Patient in bed awake, confused. HOB elevated to patient's comfort. In no acute distress, no SOB, no cough/congestion. Hunt cath intact draining to yellow color urine. Patient with episode of agitation and trying to pull out IV on right forearm, still on wrist restraint, monitored for circulation. Offered and encouraged fluids as tolerated. Bed in locked and low position. Call light within easy reach.
[2021-12-17 20:35] VITALS: BP 142/89
--- NOTE | 2021-12-17 21:34 | NUR ---
Cordarone non administered secondary to first dose administered 5 hrs ago.
[2021-12-18 00:25] VITALS: BP 137/89
[2021-12-18 04:38] VITALS: BP 129/90
--- NOTE | 2021-12-18 06:15 | NUR ---
Patient slept intermittently throughout the night, with easy arousal. No acute distress, no cough or congestion. Wrist restraint released at times, offered fluids. Needs attended. Frequent visual check. Observed isolation precautions.
[2021-12-18] MEDS: PANTOPRAZOLE SODIUM 40 MG TABLET.DR PO SCH (06:30)
[2021-12-18 08:26] LABS: HEMATOCRIT 44.4 % (36.7-47.1); MEAN CORPUSCULAR HEMOGLOBIN 34.3 uug (23.8-33.4); MEAN CORPUSCULAR VOLUME 101.6 fL (73.0-96.2); PLATELET COUNT (AUTO) 59 K/uL (152-348)
[2021-12-18] MEDS ORDERED: APIXABAN 5 MG TABLET PO SCH (09:00)
--- NOTE | 2021-12-18 09:00 | NUR ---
RECEIVED PATIENT IN BED AWAKE CONFUSED AND DISORIENTED PULLING ON HIS TELEMETRY BOX REMOVED ALL THE LEADS ATTEMPT MADE TO REAPPLY AND HE ATTEMPTED TO KICK THIS WRITTER UNABLE TO REDIRECT PATIENT HAS BILATERAL WRIST RESTRAINTS FOR SAFETY DUE TO PULLS ON EVERYTHING AND CIRCULATION CHECKED AND RELEASED Q2H ON ROOM AIR WITH NO SOB REMAIN ON COVID ISOLATION AND PRECAUTION AT THIS TIME WILL CONTINUE TO OBSERVE.
[2021-12-18] MEDS: QUETIAPINE FUMARATE 25 MG TABLET PO SCH (09:18)
[2021-12-18] MEDS: AMIODARONE HCL 200 MG TABLET PO SCH ×2 (09:18→20:30)
[2021-12-18] MEDS: LISINOPRIL 5 MG TABLET PO SCH (09:19)
[2021-12-18 11:07] LABS: CREATININE 1.2 mg/dL (0.6-1.3); MAGNESIUM 1.9 mg/dL (1.8-2.4); POTASSIUM 3.5 mmol/L (3.5-5.1)
[2021-12-18 14:45] VITALS: BP 116/94
--- NOTE | 2021-12-18 15:08 | NUR ---
SERROQUEL ORDER CHANGED PER ASHLEY CHANDRA SPECIAL MACHINE OPERATOR WHO WAS HERE TODAY TO SEE THE PATIENT.
[2021-12-18 16:33] VITALS: BP 127/96
[2021-12-18] MEDS: QUETIAPINE FUMARATE 25 MG TABLET PO PRN (17:08)
--- NOTE | 2021-12-18 18:59 | NUR ---
PER MIK GEIGER STATED TO DISCONTINUE LOZADA CATHETER AND NOTED WILL OBSERVE FOR VOIDING PATIENT REMAINS COMBATIVE AGGRESSIVE KICKING AND USING FOUL LANGUAGE REASSURED CONTINUE TO NEED SHIVAM WRIST RESTRAINTS SEEN TRYING TO GET OUT OF BED BED ALARM IS IN USE FOR SAFETY WAS MEDICATED WITH SERROQUEL THE PRN DOSE ORDERED WILL ENDORSE
--- NOTE | 2021-12-18 19:30 | NUR ---
Received pt in no acute distress. Iv intact.Pt on room ai. Safety and comfort provided. Will continue to monitor.
[2021-12-18 20:02] VITALS: BP 144/92
[2021-12-18] MEDS: ACETAMINOPHEN 325 MG TABLET PO PRN (20:29)
--- NOTE | 2021-12-18 23:00 | NUR ---
Pt restless and trying to get out of the bed . Pt needs reorientation. Pt confuse. Will continue to monitor.
[2021-12-19 00:32] VITALS: BP 128/91
[2021-12-19] MEDS: QUETIAPINE FUMARATE 25 MG TABLET PO PRN (02:45)
--- NOTE | 2021-12-19 03:50 | NUR ---
at 0245H Seroquel 12.5mg prn given to pt for restlessness.
--- NOTE | 2021-12-19 03:51 | NUR ---
Pt turned and repositioned. Pt trying to hit staff when changing his diaper. Pt needs reorientation.
[2021-12-19 04:48] VITALS: BP 154/98
--- NOTE | 2021-12-19 05:48 | NUR ---
Pt slept intermittently. Pt in room air. Pt in no acute distress. Iv intact.Prescribed medication given and pt tolerated it well. Pt confuse. Pt needs reorientation. Safety and comfort provided. All needs are met. Vital signs within normal limit. Will endorse to incoming nurse for continuity of care.
[2021-12-19] MEDS: PANTOPRAZOLE SODIUM 40 MG TABLET.DR PO SCH (06:05)
[2021-12-19] MEDS: LISINOPRIL 5 MG TABLET PO SCH (08:33)
[2021-12-19] MEDS: AMIODARONE HCL 200 MG TABLET PO SCH (08:33)
[2021-12-19] MEDS: MORPHINE SULFATE 2 MG/1 ML DISP.SYRIN IV PRN (08:34)
[2021-12-19] MEDS ORDERED: QUETIAPINE FUMARATE 25 MG TABLET PO SCH (09:00)
[2021-12-19] MEDS ORDERED: DIVALPROEX SPRINKLE 125 MG CAP.SPRINK PO SCH (09:45)
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
[2021-12-19 12:32] VITALS: BP 142/93
--- NOTE | 2021-12-19 12:55 | NUR ---
WOUND CARE CONSULT: REVIEWED CHART, NURSING DOCUMENTATION AND PHOTOS WHICH INDICATE OPEN BLISTERS TO BUTTOCKS AND RT HEEL, PRESENT ON ADMISSION. DR LAI AND DR STEPHENS NOTIFIED OF SURGICAL AND DPM CONSULTS. DISCUSSED SKIN PROTECTION WITH NURSING STAFF. MD IN AGREEMENT WITH PLAN OF CARE.
--- NOTE | 2021-12-19 16:00 | NUR ---
Able to remove bilateral wrist restraints at this time. Patient continues to be confused but calm. Patient soiled diper (with urine) changed, patient only tried to strike out at staff times one and was verbally aggressive x1 during this episode, staff able to distract and continue providing care.
[2021-12-19] MEDS: QUETIAPINE FUMARATE 25 MG TABLET PO SCH (16:25)
[2021-12-19] MEDS: DIVALPROEX SPRINKLE 125 MG CAP.SPRINK PO SCH (16:26)
[2021-12-19] MEDS: CLOTRIMAZOLE/BETAMET DIPROP CREAM 15 GM TUBE TOP SCH ×2 (16:28→20:51)
[2021-12-19 16:34] VITALS: BP 135/55
[2021-12-19 20:00] VITALS: BP 118/80
[2021-12-19] MEDS: ACETAMINOPHEN 325 MG TABLET PO PRN (20:07)
--- NOTE | 2021-12-19 20:12 | NUR ---
Patient in bed alert x1.Confused. Pleasantly calm. Denies pain .On Ra.No s/s of distress. IV patent and intact in right FA.Snack provided.Continue on isolation for covid. NSR on tele. Call light with in reach. Will continue to monitor.
[2021-12-20 04:00] VITALS: BP 120/80
[2021-12-20] MEDS: PANTOPRAZOLE SODIUM 40 MG TABLET.DR PO SCH (06:20)
--- NOTE | 2021-12-20 06:27 | NUR ---
Patient slept well . No episodes of aggressive or combative behavior .Re-assurance rendered.Able to follow simple commands. Wound care provided on bilateral buttocks and left heel. Incontinent .Voided well. Pericare rendered.NSR on tele.Continue on safety measures. All needs anticipated and met accordingly.
[2021-12-20 06:43] LABS: HEMATOCRIT 43.2 % (36.7-47.1); MEAN CORPUSCULAR HEMOGLOBIN 34.6 uug (23.8-33.4); PLATELET COUNT (AUTO) 87 K/uL (152-348)
[2021-12-20 06:49] LABS: CARBON DIOXIDE 32 mmol/L (21-32); CHLORIDE 106 mmol/L (98-107); CREATININE 1.4 mg/dL (0.6-1.3); MAGNESIUM 2.1 mg/dL (1.8-2.4); POTASSIUM 3.9 mmol/L (3.5-5.1); UREA NITROGEN, BLOOD 31 mg/dL (7-18)
[2021-12-20 07:03] LABS: GLUCOSE 113 mg/dL (74-106)
[2021-12-20] MEDS: DIVALPROEX SPRINKLE 125 MG CAP.SPRINK PO SCH ×3 (09:21→16:42)
[2021-12-20] MEDS: QUETIAPINE FUMARATE 25 MG TABLET PO SCH ×2 (09:22→16:42)
[2021-12-20] MEDS: LISINOPRIL 5 MG TABLET PO SCH (09:31)
[2021-12-20] MEDS: CLOTRIMAZOLE/BETAMET DIPROP CREAM 15 GM TUBE TOP SCH (09:32)
--- NOTE | 2021-12-20 10:30 | NUR ---
Telemetry discontinued at this time, last reading sinus rhythm with HR 95-98.
[2021-12-20 12:00] VITALS: BP 107/68
[2021-12-20] MEDS: QUETIAPINE FUMARATE 25 MG TABLET PO PRN (12:33)
[2021-12-20 16:00] VITALS: BP_SYST 122; BP_SYST 132; BP_DIAS 70; BP_DIAS 71
--- NOTE | 2021-12-20 17:00 | NUR ---
Patient is less aggressive this shift. Only becomes verbally aggressive when hygiene care to buttock provided after patient was incontinent of bowel. No complaint of pain at rest, no facial grimacing. Noted with occasional restlessness. No SOB, no coughing. Patient tolerates meals well. Safety measures continued, call light within reach.
--- NOTE | 2021-12-20 17:25 | NUR ---
Patient discharged with all belongings at this time, transferred to [facility]. Report given to DOMINGO Bear at [facility]. Patient is stable at time of discharge. Family Emily made aware of discharge.
== END 2021-12-20 17:25 | DRG 177 ==
LOC: ER 06:07 → TRANSITION 10:30 → TELE3 13:50 → TELE-TD3 20:10 → TELE3 12-17 16:24
PROVIDERS: ADMIT Nurse Practitioner Family; ATTEND Nurse Practitioner Acute Care
PROC: 05H533Z Insertion of Infusion Device into Right Subclavian Vein, Percutaneous Approach (ICD-10-PCS; principal; 2021-12-17)
PROC: B546ZZA Ultrasonography of Right Subclavian Vein, Guidance (ICD-10-PCS; 2021-12-17)
DX: U07.1 COVID-19 (principal); G93.41 Metabolic encephalopathy; N17.0 Acute kidney failure with tubular necrosis; J98.11 Atelectasis; I42.9 Cardiomyopathy, unspecified; I47.1 Supraventricular tachycardia; F05 Delirium due to known physiological condition; D69.6 Thrombocytopenia, unspecified; F03.90 Unspecified dementia, unspecified severity, without behavioral disturbance, psychotic disturbance, mood disturbance, and anxiety; I10 Essential (primary) hypertension; I25.10 Atherosclerotic heart disease of native coronary artery without angina pectoris; I48.0 Paroxysmal atrial fibrillation; I49.5 Sick sinus syndrome; N40.0 Benign prostatic hyperplasia without lower urinary tract symptoms; R73.9 Hyperglycemia, unspecified; E80.6 Other disorders of bilirubin metabolism; Z79.82 Long term (current) use of aspirin; I71.2 Thoracic aortic aneurysm, without rupture; S90.821A Blister (nonthermal), right foot, initial encounter; X58.XXXA Exposure to other specified factors, initial encounter; Y93.9 Activity, unspecified; Y92.009 Unspecified place in unspecified non-institutional (private) residence as the place of occurrence of the external cause
CPT/HCPCS: 36415; 70450; 71045; 71250; 72125; 72170; 82747; 83605; 83615; 83735; 84443; 84484; 85014; 85025; 85730; 87040; 93005; 93307; A4663; A6209; A6213; C1758; G0378; J0282; J0696; J1100; J1650; J2060; J2270; J7040; J7050; Q0144

== ENCOUNTER 2022-01-19 19:58 | Inpatient (IN) | payer MEDICARE, BC ==
[~2022-01-19] VITALS: Ht 177.8 cm; Wt 91.2 kg
[~2022-01-19 19:58] MED LIST changes: -ASPI-605 PO; -B-COMPLEX; -CHOL500062; -DONE10TA44 PO; +HYDR-4077 PO; -IVER3TAB2 PO; +LISI-782 PO
[2022-01-19 21:42] LABS: HEMATOCRIT 40.8 % (36.7-47.1); MEAN CORPUSCULAR HEMOGLOBIN 33.8 uug (23.8-33.4); MEAN CORPUSCULAR VOLUME 99.5 fL (73.0-96.2); PLATELET COUNT (AUTO) 139 K/uL (152-348)
[2022-01-19 21:57] LABS: CARBON DIOXIDE 27 mmol/L (21-32); CHLORIDE 108 mmol/L (98-107); CREATININE 1.2 mg/dL (0.6-1.3); ETHANOL < 3 MG/DL (0-0); GLUCOSE 135 mg/dL (74-106); POTASSIUM 3.9 mmol/L (3.5-5.1); UREA NITROGEN, BLOOD 26 mg/dL (7-18)
[2022-01-19 22:04] LABS: ACETAMINOPHEN < 2.0 ug/mL (10-30); ALANINE AMINOTRANSFERASE 28 U/L (16-63); ALKALINE PHOSPHATASE 60 U/L (50-136); ASPARTATE AMINOTRANSFERASE 27 U/L (15-37); BILIRUBIN,DIRECT 0.3 mg/dL (0.0-0.2); BILIRUBIN,TOTAL 0.9 mg/dL (0.2-1.0); CREATINE KINASE, TOTAL 99 U/L (39-308); TOTAL PROTEIN, SERUM 5.5 g/dL (6.4-8.2)
--- NOTE | 2022-01-19 22:31 | NUR ---
Medically cleared by Dr Sargent.
--- NOTE | 2022-01-19 22:32 | NUR ---
Crisis team called. Spoke to Art and he said that he is on his way to evaluate patient.
--- NOTE | 2022-01-19 23:09 | NUR ---
Narendra Kelly from PET TEAM here to eval patient.
--- NOTE | 2022-01-19 23:11 | NUR ---
Art from Crisis Team at bedside.
--- NOTE | 2022-01-19 23:55 | NUR ---
Narendra Kelly from PET TEAM unable to placed patient on hold at this time due to patient desating down to 90% on RA and requires 02 N/C at 2Liter at this time. Dr Rosetta jose.
[2022-01-20] MEDS ORDERED: BISA10SU61 RC (00:02)
[2022-01-20] MEDS ORDERED: ACET325T53 PO (00:02)
[2022-01-20] MEDS ORDERED: CARV6.252 PO (00:02)
[2022-01-20] MEDS ORDERED: ONDA-104 PO (00:02)
[2022-01-20] MEDS ORDERED: NA P133E RC (00:02)
[2022-01-20] MEDS ORDERED: LOSA25TA27 PO (00:02)
[2022-01-20] MEDS ORDERED: ONDA4TAB11 PO (00:02)
[2022-01-20] MEDS ORDERED: FLUC100T8 PO (00:02)
[2022-01-20] MEDS ORDERED: QUET25TA PO (00:02)
[2022-01-20] MEDS ORDERED: DIVA125T2 PO (00:02)
[2022-01-20] MEDS ORDERED: TRAM50TA2 PO (00:02)
[2022-01-20] MEDS ORDERED: AMLO-212 PO (00:02)
[2022-01-20] MEDS ORDERED: PANT40TA2 PO (00:02)
[2022-01-20] MEDS ORDERED: MAGN400O6 PO (00:02)
[2022-01-20] MEDS ORDERED: IPRA3AMP22 IH (00:02)
[2022-01-20] MEDS ORDERED: APIX2.5T PO (00:02)
[2022-01-20] MEDS ORDERED: ASCO500T10 PO (00:02)
[2022-01-20] MEDS ORDERED: REMEDY ESSENTIAL ZINC PASTE 113 GM TP PRN (00:45)
[2022-01-20] MEDS ORDERED: ACETAMINOPHEN 325 MG TABLET-SA PATIENTS-PAIN ONLY PO PRN (00:45)
[2022-01-20] MEDS ORDERED: ACETAMINOPHEN 325 MG TABLET PO PRN (00:45)
[2022-01-20] MEDS ORDERED: FLEET ENEMA 133 ML BOTTLE RC PRN (00:45)
[2022-01-20] MEDS ORDERED: BISACODYL 10 MG SUPP.RECT RC PRN (00:45)
[2022-01-20] MEDS ORDERED: ONDANSETRON 4 MG/2 ML VIAL IV PRN (00:45)
[2022-01-20] MEDS ORDERED: MAGNESIUM HYDROXIDE 30 ML LIQUID UDC PO PRN ×2 (00:45)
--- NOTE | 2022-01-20 00:45 | NUR ---
Glenys Ordonez HARNESS TIER employee relations advisor for [employer] group accept patient to Med Surg floor.
--- NOTE | 2022-01-20 01:52 | NUR ---
Received report from Terrence LANE
--- NOTE | 2022-01-20 03:28 | NUR ---
Transfered patient to 3rd floor Med Surg via gurny with no distress noted.
[2022-01-20 03:30] VITALS: BP 139/99
--- NOTE | 2022-01-20 06:01 | NUR ---
Pt admitted to [place] in stable condition. No distress noted. Able to answer simple questions, otherwise AOx1. Tolerating 1L of oxygen at this time. IV site intact. Will endorse to day shift.
[2022-01-20] MEDS: PANTOPRAZOLE SODIUM 40 MG TABLET.DR PO SCH (06:10)
[2022-01-20] MEDS: DIVALPROEX 125 MG TABLET.DR PO SCH ×3 (08:13→16:58)
[2022-01-20] MEDS: LOSARTAN POTASSIUM 25 MG TABLET PO SCH ×2 (08:13→16:58)
[2022-01-20] MEDS: AMLODIPINE 5 MG TABLET PO SCH (08:13)
[2022-01-20] MEDS: CARVEDILOL 6.25 MG TABLET PO SCH ×2 (08:13→16:58)
[2022-01-20] MEDS: ASCORBIC ACID 500 MG TABLET PO SCH (08:14)
[2022-01-20] MEDS: APIXABAN 2.5 MG TABLET PO SCH ×2 (08:14→16:59)
[2022-01-20] MEDS: FLUCONAZOLE 100 MG TABLET PO SCH (08:18)
[2022-01-20] MEDS ORDERED: FLUCONAZOLE 100 MG TABLET PO SCH (09:00)
--- NOTE | 2022-01-20 11:10 | NUR ---
WOUND CARE CONSULT: PT PRESENTS WITH RT ARM SKIN TEAR, DISCOLORATION TO BILATERAL HIPS, DEEP TISSUE INJURY IN EVOLUTION TO PRESACRAL/LEFT BUTTOCK AREA AND DRY WOUND TO LEFT HEEL, ALL PRESENT ON ADMISSION. RECOMMENDATIONS MADE FOR SKIN PROTECTION. DISCUSSED WITH NURSING STAFF. PT IS INCONTINENT. DR COHEN AND DR STEPHENS NOTIFIED OF SURGICAL AND DPM CONSULTS. MD IN AGREEMENT WITH PLAN OF CARE.
[2022-01-20 12:54] VITALS: BP 119/84
[2022-01-20] MEDS: IV LACTATED RINGERS SOLUTION 1,000 ML IV PRN (15:24)
--- NOTE | 2022-01-20 15:25 | NUR ---
Pt is a/o x 1, confused but cooperative with care at this time. Pt takes medications one by one but can swallow them whole. Wound care done for right forearm/elbow with xeroform and foam dressing. IV patent and intact, wrapped site to prevent pt removal. Comfort measures provided, call light within reach. Will continue to monitor.
[2022-01-20 16:24] VITALS: BP 123/87
[2022-01-20] MEDS: TRAMADOL HCL 50 MG TABLET PO PRN (16:58)
--- NOTE | 2022-01-20 17:10 | NUR ---
Pt has been cooperative with care thus far. Gave medications crushed in applesauce for pt comfort and preference. Pt has been taking off oxygen on and off. Saturates 91-93% on room air, and 96-97% on 1L nasal cannula. redirected and oriented pt to keep oxygen on but he removes some time after.
[2022-01-20] MEDS ORDERED: QUETIAPINE FUMARATE 25 MG TABLET PO SCH ×3 (21:00)
--- NOTE | 2022-01-20 22:19 | NUR ---
Pt calm and sleeping in bed. No events during shift. Pt has been cooperative with care and redirectable when confused. Pt iv intact and patent running fluids as ordered. Comfort measures provided, call light within reach, bed alarm on. Endorsed pt, care transferred to [facility].
[2022-01-21] MEDS: IV LACTATED RINGERS SOLUTION 1,000 ML IV PRN (05:19)
[2022-01-21 05:37] LABS: ABG BASE EXCESS 1.6 mmol/L; ABG HCO3 25.6 mmol/L; ABG PCO2 38.4 mmHg (35.0-45.0); ABG PH 7.442 (7.350-7.450); ABG PO2 71.1 mmHg (75.0-100.0); ABG SITE LEFT RADIAL; ABG TOTAL HEMOGLOBIN 13.9 G/dL (13.5-18.0); MetHb 0.4 % (0.0-1.5); O2Hb 93.8 % (94.0-97.0); VENT MODE Nasal Cannula
[2022-01-21 05:38] VITALS: BP 126/72
[2022-01-21] MEDS: PANTOPRAZOLE SODIUM 40 MG TABLET.DR PO SCH (06:29)
--- NOTE | 2022-01-21 06:52 | NUR ---
Slept intermittently throughout the night, responsive to touch and verbal stimuli. No distress noted, denies chest pain. R hand IV site intact and patent. Needs assessed and attended to. Call light within reach.
[2022-01-21 07:21] LABS: HEMATOCRIT 39.8 % (36.7-47.1); MEAN CORPUSCULAR HEMOGLOBIN 34.3 uug (23.8-33.4); MEAN CORPUSCULAR VOLUME 99.4 fL (73.0-96.2); PLATELET COUNT (AUTO) 121 K/uL (152-348)
[2022-01-21 08:08] LABS: CARBON DIOXIDE 26 mmol/L (21-32); CHLORIDE 107 mmol/L (98-107); GLUCOSE 117 mg/dL (74-106); POTASSIUM 3.9 mmol/L (3.5-5.1); UREA NITROGEN, BLOOD 23 mg/dL (7-18)
[2022-01-21 08:09] LABS: MAGNESIUM 1.7 mg/dL (1.8-2.4); PHOSPHOROUS 2.9 mg/dL (2.5-4.9)
--- NOTE | 2022-01-21 08:24 | NUR ---
RECEIVED PT AWAKE BUT CONFUSED. PT RESPOND TO COMMAND. NO SOB NOTED. NO ACUTE DISTRESS NOTED. PT IS BED BOUND. PT HAVE LEFT BUTTOCK DTI.
[2022-01-21] MEDS: FLUCONAZOLE 100 MG TABLET PO SCH (09:31)
[2022-01-21] MEDS: ASCORBIC ACID 500 MG TABLET PO SCH (09:31)
[2022-01-21] MEDS: DIVALPROEX 125 MG TABLET.DR PO SCH ×2 (09:31→13:38)
[2022-01-21] MEDS: AMLODIPINE 5 MG TABLET PO SCH (09:32)
[2022-01-21] MEDS: APIXABAN 2.5 MG TABLET PO SCH (09:32)
[2022-01-21] MEDS: CARVEDILOL 6.25 MG TABLET PO SCH (09:32)
[2022-01-21] MEDS: MAGNESIUM SULFATE/D5W 100 ML IV SCH ×2 (09:33→10:55)
[2022-01-21] MEDS: LOSARTAN POTASSIUM 25 MG TABLET PO SCH (09:33)
--- NOTE | 2022-01-21 10:23 | NUR ---
CLEARED PATIENT FOR DISCHARGE. PT WILL GO TO [facility].
[2022-01-21 12:00] VITALS: BP 123/86
[2022-01-21] MEDS: TRAMADOL HCL 50 MG TABLET PO PRN (13:39)
[2022-01-21 13:51] LABS: *CLARITY,URINE CLEAR (CLEAR); *COLOR,URINE YELLOW (YELLOW)
[2022-01-21 13:52] LABS: *BILIRUBIN,URIN NEGATIVE (NEGATIVE); *BLOOD, URINE 2+ (NEGATIVE); PH,URINE 5.5 (5.0-8.0); UGLUCOSE NEGATIVE (NEGATIVE)
[2022-01-21 13:53] LABS: *KETONES,URINE TRACE (NEGATIVE); LEUKOCYTE ESTERASE ,URINE TRACE (NEGATIVE); NITRITE, URINE NEGATIVE (NEGATIVE)
[2022-01-21 14:53] LABS: BACTERIA,URINE NONE SEEN /HPF (NONE SEEN); RBC,URINE 0-3 /HPF (0-3); SQUAMOUS EPITHELIAL CELL,UR FEW /HPF (NONE SEEN); WBC,URINE 0-3 /HPF (0-3)
[2022-01-21 15:03] LABS: *AMPHETAMINE, URINE NEGATIVE (NEGATIVE); *CANNABINOID, URINE NEGATIVE (NEGATIVE); *COCCAINE, URINE NEGATIVE (NEGATIVE); *PHENCYCLIDINE SCREEN,URINE NEGATIVE (NEGATIVE)
--- NOTE | 2022-01-21 15:27 | NUR ---
REPORT GIVEN TO [facility].
[2022-01-21 16:00] VITALS: BP 165/81
--- NOTE | 2022-01-21 16:30 | NUR ---
PT WAS DISCHARGE. PT TRANSPORTED VIA [facility]. REPORT GIVEN TO EMT. PT WILL GO TO [facility].
== END 2022-01-21 16:30 | DRG 640 ==
LOC: ER 20:07 → MEDSURG3 01-20 00:42
PROVIDERS: ADMIT Nurse Practitioner Family; ATTEND Nurse Practitioner Family
DX: E86.0 Dehydration (principal); G93.41 Metabolic encephalopathy; N17.0 Acute kidney failure with tubular necrosis; E44.1 Mild protein-calorie malnutrition; D69.6 Thrombocytopenia, unspecified; E88.09 Other disorders of plasma-protein metabolism, not elsewhere classified; I10 Essential (primary) hypertension; I48.0 Paroxysmal atrial fibrillation; I25.5 Ischemic cardiomyopathy; Z86.16 Personal history of COVID-19; Z79.01 Long term (current) use of anticoagulants; N40.0 Benign prostatic hyperplasia without lower urinary tract symptoms; I25.10 Atherosclerotic heart disease of native coronary artery without angina pectoris; F03.90 Unspecified dementia, unspecified severity, without behavioral disturbance, psychotic disturbance, mood disturbance, and anxiety; F29 Unspecified psychosis not due to a substance or known physiological condition; Z68.28 Body mass index [BMI] 28.0-28.9, adult; Z20.822 Contact with and (suspected) exposure to COVID-19; B34.9 Viral infection, unspecified; L89.156 Pressure-induced deep tissue damage of sacral region
CPT/HCPCS: 36415; 36600; 71045; 83735; 84100; 85025; 93005; 97161; A4663; A6209; A6213; G0378; G0480; J3475; J7120